=== PATIENT | female | born 1995 | race Caucasian/White ===

== ENCOUNTER 2023-08-21 15:56 | Outpatient (AMB) | payer SELFPAY ==
--- NOTE | 2023-08-21 16:04 | MHC.OFFWIV ---
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 [employer] Patient Tobacco Use Status: Current someday Tobacco user Physical Exam Vital Signs: Last Vital Signs Temp 98.1 F 08/21/23 16:06 Pulse 83 08/21/23 16:06 BP 112/66 08/21/23 16:06 Pulse Ox 99 08/21/23 16:06 Oxygen Delivery Method Room Air 08/21/23 16:06 BMI result Body Mass Index 20.8 Const General: cooperative and healthy appearing Nutritional Appearance: well nourished Orientation/consciousness: patient oriented x3 Limitations: no limitations HEENT Head: Yes normal to inspection Eyes General: appearance normal, both eyes and all related structures Neck Neck: Yes normal visual inspection Chest Chest palpation & inspection: normal palpation of entire chest wall Resp Effort & Inspection: normal respiratory effort Neuro General: patient oriented x3 Assessment & Plan Assessment & Plan (1) Physical exam, pre-employment: Code(s): Z02.1 - Encounter for pre-employment examination Plan: TB blood work ordered. Coding Level of Care Code Sports/Work/School Physical Diagnoses Physical exam, pre-employment Z02.1
[2023-08-21 16:06] VITALS: BP 112/66; PULSE 83; TEMP 36.7; O2SAT 99; BMI 20.8
== END 2023-08-21 16:29 | disposition home or self-care (01) ==
PROVIDERS: Visit Provider Internal Medicine
DX: Z02.1 Encounter for pre-employment examination (principal)
CPT/HCPCS: 99080

== ENCOUNTER 2023-08-22 16:20 | Outpatient (REF) | payer SELFPAY ==
[2023-08-24 19:23] LABS: TS Negative Control Passed; TS Panel A 1; TS Panel B 0; TS Positive Control Passed; TSpotTB Negative (Negative)
== END 2023-08-22 16:21 | disposition home or self-care (01) ==
LOC: HO.LAB 16:20
PROVIDERS: PCP Internal Medicine; Visit Provider Internal Medicine
DX: Z02.0 Encounter for examination for admission to educational institution (principal); Z11.1 Encounter for screening for respiratory tuberculosis
CPT/HCPCS: 36415; 86481